=== PATIENT | male | born 1990 | race Caucasian/White ===

== ENCOUNTER 2022-10-07 10:47 | Emergency (ER) | payer OTHER ==
[2022-10-07] MEDS ORDERED: Ketorolac Tromethamine 30 MG/ML VIAL ONE (12:01)
[2022-10-07] MEDS ORDERED: HYDROcodone/Acetaminophen 5/325 mg Tablet ONE (12:01)
== END 2022-10-07 12:30 | disposition home or self-care (01) ==
LOC: NAV ERS 10:47
DX: M54.50 Low back pain, unspecified (principal)
CPT/HCPCS: 96372; 99283; J1885